=== PATIENT | female | born 1995 | race Caucasian/White ===

== ENCOUNTER 2019-12-30 14:27 | Emergency (ER) | payer BC, SELFPAY ==
[2019-12-30 14:36] VITALS: BP 141/84; PULSE 60; RESP 16; TEMP 38.2; O2SAT 100
--- NOTE | 2019-12-30 14:53 | ED.URI ---
HPI - URI/Sore Throat General Chief Complaint: Upper Respiratory Infection Stated Complaint: SORE THROAT Time Seen by Provider: 12/30/19 14:31 Source: patient Mode of arrival: ambulatory Limitations: no limitations History of Present Illness HPI Narrative: 24-year-old female presents to urgent care with complaints of sore throat, runny nose, nasal congestion, low-grade fevers, body aches and chills since last night. Patient last took Tylenol at 6 AM today. 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 Patient denies shortness of breath, wheezing, nausea, vomiting or diarrhea. Patient is a non-smoker. Patient denies recent travel MD elicited complaint: fever, cough, sore throat, rhinorrhea and nasal congestion Onset (ago): day(s) (1) Consistency: constant Description of mucous: clear Able to tolerate fluids by mouth: Yes Exacerbating factors: nothing Related Data Home Medications Medication Instructions Recorded Confirmed No Home Medications 12/30/19 12/30/19 Allergies Allergy/AdvReac Type Severity Reaction Status Date / Time No Known Allergies Allergy Verified 12/30/19 14:35 Review of Systems Review of Systems: All systems reviewed & are unremarkable except as noted in HPI and below Constitutional: Constitutional: Reports as per HPI, Reports chills, Reports fatigue, Reports fever(s) and Denies weakness ENT: Denies dysphagia, Denies dizziness, Denies epistaxis, Reports nasal congestion and Reports sore throat Cardiovascular: Cardiovascular: Denies chest pain, Denies rapid heart rate and Denies radiating jaw, neck or arm pain Respiratory: Respiratory: Denies chest congestion, Reports cough, Denies dyspnea and Denies wheezing Gastrointestinal: Gastrointestinal: Denies constipation, Denies diarrhea, Denies nausea and Denies vomiting Integumentary/Breasts: Skin/Breast: Denies rash Neurologic: Denies vertigo, Denies dizziness and Denies syncope PMFSH Social History Social History (Updated 12/30/19 @ 14:55 by Anupama Madrigal APN) Smoking status: Never smoker Exam Const: General: healthy appearing, no acute distress and alert Nutritional Appearance: well nourished Orientation/consciousness: patient oriented x3 HENMT: Ears: external ears normal and TM's normal bilaterally Face and sinus: sinuses nontender Mouth: Yes Normal oral and palatal mucosa present, Yes lip normal and Yes moist mucous membranes Throat: posterior oropharynx normal and uvula midline Neck: Neck: normal visual inspection and no lymphadenopathy Resp: Effort & Inspection: normal respiratory effort and not tachypneic Auscultation: clear to auscultation bilaterally, no rales and no wheezes Cardio: Rate: regular rate Rhythm: regular rhythm Heart sounds: no murmurs Skin: General skin exam: normal color, no jaundice and no pallor Rashes: no rashes Neuro: General: patient oriented x3, moves all extremities and no meningeal signs Extrem: General: normal to inspection Psych: Appearance: grossly normal and well kempt Mental Status: mental status grossly normal Affect: normal affect Attitude: cooperative Course Vital Signs Vital signs: Vital Signs Temperature 38.2 C H 12/30/19 14:36 Pulse Rate 60 12/30/19 14:36 Respiratory Rate 16 12/30/19 14:36 Blood Pressure 141/84 H 12/30/19 14:36 Pulse Oximetry 100 12/30/19 14:36 Temperature 38.2 C H 12/30/19 14:56 Pulse Rate 60 12/30/19 14:36 Respiratory Rate 16 12/30/19 14:36 Blood Pressure 141/84 H 12/30/19 14:36 Pulse Oximetry 100 12/30/19 14:36 MDM - URI/Sore Throat MDM Narrative Medical decision making narrative: Negative influenza and strep results discussed with patient. Patient agrees to go home, rest, increase fluids and alternate nfai-com-archeac Motrin Tylenol as needed. Patient agrees to proceed to emergency room if symptoms worsen. School excuse provided for patient Differential Diagnosis Differential diagnosis: Likely otitis media,
[2019-12-30 14:56] VITALS: TEMP 38.2
[2019-12-30] MEDS: IBUPROFEN 600 MG TABLET PO (14:56)
[2019-12-30 15:14] VITALS: TEMP 38
== END 2019-12-30 15:16 | disposition home or self-care (01) ==
PROVIDERS: Emergency Provider Nurse Practitioner Family
DX: J06.9 Acute upper respiratory infection, unspecified (principal)
CPT/HCPCS: 87081; 87804; 87880; 99213; A9270; G0463

== ENCOUNTER 2020-01-02 12:46 | Emergency (ER) | payer BC, SELFPAY ==
[2020-01-02 12:51] VITALS: BP 148/91; PULSE 118; RESP 16; TEMP 37.7; O2SAT 100
--- NOTE | 2020-01-02 13:06 | ED.EAR ---
HPI - Ear Problem General Chief complaint: Ear Stated complaint: EARACHE Time Seen by Provider: 01/02/20 13:12 Source: patient Mode of arrival: ambulatory Limitations: no limitations History of Present Illness HPI Narrative: A 24 y/o female, who is a nonsmoker/occasional drinker, presents to with c/o a bilateral earache since yesterday. Pt was seen at a couple days ago and was told that she had a viral infection, after noncontributory influenza and strep testing. She reports a sore throat, without fever, hoarseness, rash, N/V Location: bilateral Associated symptoms ear: other (sore throat) Related Data Home Medications Medication Instructions Recorded Confirmed etonogestrel-ethinyl estradiol 1 vag ring VAGINAL 01/02/20 [NuvaRing] Allergies Allergy/AdvReac Type Severity Reaction Status Date / Time No Known Allergies Allergy Verified 01/02/20 12:50 Review of Systems Review of Systems: Narrative: General/Constitutional: Denies: weight loss,fever Eyes: Denies: Redness,discharge Ears/Nose/Throat: Reports: bilateral earache, sore throat; Denies: Epistaxis,ear discharge Respiratory: Denies: Hemoptysis Gastrointestinal: Denies: Vomiting, Bleeding-rectal Skin: Denies: Lumps, eruption Neurologic: Denies: Focal Weakness,Sz Hematologic: Denies: Petechiae/Purpura Psychiatric: Denies: Suicidal ideation All systems reviewed & are unremarkable except as noted in HPI and below PMFSH Social History Social History (Updated 01/02/20 @ 13:24 by Sonia Navarro) Smoking status: Never smoker Alcohol intake: current Alcohol use details: occasional Comments No significant PMHx. No PCP on file. At time of signature, agree with nursing past medical, surgical, social and family history. There is no relevant family history pertinent to the presenting complaint Exam Narrative: Exam Narrative: General Appearance: Well appearing, Well nourished EYE: PERRLA, Conjunctiva clear Ears: Bilateral bullous myringitis Nose: Rhinorrhea, Mucousal erythema Mouth/Throat: MM moist, Uvula midline, Pharyngeal erythema Neck: Supple, No adenopathy Respiratory: No respiratory distress, Breath sounds equal, Clear to auscultation Cardiovascular: RRR, No JVD Musculoskeletal: Non tender, Normal strength Skin: Warm, Dry Neurological: A&O x3, CN II-XII intact Psychiatric: Normal mood, Normal affect Course Vital Signs Vital signs: Vital Signs Temperature 99.8 F H 01/02/20 12:51 Pulse Rate 118 H 01/02/20 12:51 Respiratory Rate 16 01/02/20 12:51 Blood Pressure 148/91 H 01/02/20 12:51 Pulse Oximetry 100 01/02/20 12:51 Temperature 99.8 F H 01/02/20 12:51 Pulse Rate 118 H 01/02/20 12:51 Respiratory Rate 16 01/02/20 12:51 Blood Pressure 148/91 H 01/02/20 12:51 Pulse Oximetry 100 01/02/20 12:51 Medical Decision Making Vital Signs Vital Signs: Vital Signs Temperature 99.8 F H 01/02/20 12:51 Pulse Rate 118 H 01/02/20 12:51 Respiratory Rate 16 01/02/20 12:51 Blood Pressure 148/91 H 01/02/20 12:51 Pulse Oximetry 100 01/02/20 12:51 Temperature 99.8 F H 01/02/20 12:51 Pulse Rate 118 H 01/02/20 12:51 Respiratory Rate 16 01/02/20 12:51 Blood Pressure 148/91 H 01/02/20 12:51 Pulse Oximetry 100 01/02/20 12:51 Discharge Plan Discharge Clinical Impression: Bullous myringitis of both ears Patient Disposition: Home, Self-Care Condition: Stable Instructions: Antibiotic Form, Otitis Media (ED) Prescriptions: New codeine-guaifenesin 10-100 mg/5 mL liquid 7.5 ml PO Q6H PRN (Reason: cough) Qty: 118 RF: 0 amoxicillin-pot clavulanate [Augmentin] 500-125 mg tablet 1 tablet PO Q12H Qty: 20 RF: 0 tramadol 50 mg tablet 50 mg PO BID PRN (Reason: pain) Qty: 15 RF: 1 No Action etonogestrel-ethinyl estradiol [NuvaRing] 0.12-0.015 mg/24 hr ring 1 vag ring VAGINAL RF: 0 Interventions: Discharge Disposition Last Done:
== END 2020-01-02 13:27 | disposition home or self-care (01) ==
PROVIDERS: Emergency Provider Emergency Medicine
DX: H73.013 Bullous myringitis, bilateral (principal)
CPT/HCPCS: 99213; G0463